=== PATIENT | female | born 1985 | race African-American/Black ===

== ENCOUNTER 2020-01-16 11:03 | Inpatient (IN) | payer BC ==
--- NOTE | 2020-01-16 12:04 | PDOC ---
History of Present Illness - General Chief Complaint: Chest Pain Stated Complaint: Palpitations Time Seen by Provider: 01/16/20 11:48 History Source: Patient Past History - Medical History Allergies/Adverse Reactions: Allergies Allergy/AdvReac Type Severity Reaction Status Date / Time ibuprofen Allergy Verified 01/16/20 11:10 COPD: No Diabetes: Yes Thyroid Disease: Yes (hypo) Other medical history: Endometriosis - Reproductive History Is Patient Now?: No - Psycho-Social/Smoking History Smoking History: Never smoked Have you smoked in the past 12 months: No - Substance Abuse Hx (Audit-C & DAST Scrn) How often the patient has a drink containing alcohol: Never Score: In Men: 4 or > Positive; In Women: 3 or > Positive: 0 Screen Result (Pos requires Nsg. Audit-10AR): Negative In the last yr the pt used illegal drug/Rx for NonMed reason: No Score: Yes response is considered Positive: 0 Screen Result (Positive result requires Nsg. DAST-10): Negative *Physical Exam - Vital Signs Last Vital Signs Temp Pulse Resp BP Pulse Ox 98.3 F 129 H 20 125/87 100 01/16/20 11:10 01/16/20 11:10 01/16/20 11:10 01/16/20 11:10 01/16/20 11:10
--- OUTSIDE RECORDS SUMMARY | 2020-01-16 12:18 | XMS ---
:1985 Author Organization [facility] Support Name Relationship Address Phone [facility] DDSO Unavailable [address] [place] [address] ALLI SHAH MOTHER [address] [phone] [place] [address] Re-disclosure Warning The records that you are about to access may contain information from federally- assisted alcohol or drug abuse programs. If such information is present, then the following federally mandated warning applies: This information has been disclosed to you from records protected by federal confidentiality rules (42 CFR part 2). The federal rules prohibit you from making any further disclosure of this information unless further disclosure is expressly permitted by the written consent of the person to whom it pertains or as otherwise permitted by 42 CFR part 2. A general authorization for the release of medical or other information is NOT sufficient for this purpose. The Federal rules restrict any use of the information to criminally investigate or prosecute any alcohol or drug abuse patient.The records that you are about to access may contain highly sensitive health information, the redisclosure of which is protected by Article 27-F of the [facility] Public Health law. If you continue you may haveaccess to information: Regarding HIV / AIDS; Provided by facilities licensed or operated by the [facility] Office of Mental Health; or Provided by the [facility] Office for People With Developmental Disabilities. If such information is present, then the following [facility] mandated warning applies: This information has been disclosed to you from confidential records which are protected by state law. State law prohibits you from making any further disclosure of this information without the specific written consent of the person to whom it pertains, or as otherwise permitted by law. Any unauthorized further disclosure in violation of state law may result in a fine or fdc sentence or both. A general authorization for the release of medical or other information is NOT sufficient authorization for further disclosure. Insurance Providers Payer name Policy type / Policy ID Covered Covered constitution party's Policy Plan Coverage type constitution party ID relationship to Hensley Information hensley BC PPO [id number] SP [id number]
[2020-01-16 12:37] LABS: BASO % 0.4 % (0-2.0); HEMATOCRIT 41.4 % (32.4-45.2); HEMOGLOBIN 13.2 GM/dL (10.7-15.3); LYMPH % 24.8 % (8-40); MCH 26.2 pg (25.7-33.7); MCHC 31.9 g/dl (32.0-36.0); MEAN PLT VOLUME 8.3 fl (7.5-11.1); MONO % 6.2 % (3.8-10.2); NEUT % 68.6 % (42.8-82.8); PLATELET COUNT 404 K/MM3 (134-434); RBC 5.05 M/mm3 (3.60-5.2); WHITE BLOOD COUNT 4.5 K/mm3 (4.0-10.0)
[2020-01-16 12:43] LABS: EPI CELLS 9 /uL (0-25.1); HYALINE CASTS 1 /uL (0-3.1); URINE APPEARANCE CLEAR; URINE BACTERIA 54 /uL (0-1359); URINE BILIRUBIN NEGATIVE (NEGATIVE); URINE COLOR YELLOW; URINE GLUCOSE (UA) 3+ (NEGATIVE); URINE KETONE 4+ (NEGATIVE); URINE LEUK ESTERASE NEGATIVE (NEGATIVE); URINE NITRITE NEGATIVE (NEGATIVE); URINE PROTEIN 1+ (NEGATIVE); URINE RBC 7 /uL (0-23.9); URINE UROBILINOGEN 0.2 mg/dL (0.2-1.0); URINE WBC 8 /uL (0-25.8)
[2020-01-16 12:46] LABS: INR 1.03 (0.83-1.09); PROTHROMBIN TIME (PATIENT) 12.6 SEC (9.7-13.0)
[2020-01-16 12:49] LABS: ACTIVATED PTT 25.6 SECONDS (25.2-36.5)
[2020-01-16 13:04] LABS: LDH 122 U/L (84-246)
[2020-01-16 13:08] LABS: ALBUMIN 4.1 g/dl (3.4-5.0); ALK PHOS 61 U/L (45-117); ANION GAP 18 MMOL/L (8-16); BILIRUBIN,TOTAL 0.4 mg/dL (0.2-1); BLOOD UREA NITROGEN 8.8 mg/dL (7-18); CALCIUM 9.5 mg/dL (8.5-10.1); CHLORIDE 106 mmol/L (98-107); CO2 10 mmol/L (21-32); CREATININE 0.9 mg/dL (0.55-1.3); GLUCOSE,RANDOM 166 mg/dL (74-106); MAGNESIUM 2.1 mg/dL (1.8-2.4); N-TERMINAL BNP < 5.0 pg/ml (5-125); POTASSIUM 4.2 mmol/L (3.5-5.1); SGOT/AST 8 U/L (15-37); SGPT/ALT 13 U/L (13-61); SODIUM 134 mmol/L (136-145); TOT PROT 8.5 g/dl (6.4-8.2)
--- NOTE | 2020-01-16 13:22 | PDOC ---
Documentation entered by Nicky Escobar SCRIBE, acting as scribe for Romeo Max MD. Romeo Max MD: This documentation has been prepared by the scribeShawn Ana, SCRIBE, under my direction and personally reviewed by me in its entirety. I confirm that the documentation accurately reflects all work, treatment, procedures, and medical decision making performed by me. History of Present Illness - General Chief Complaint: Chest Pain Stated Complaint: Palpitations Time Seen by Provider: 01/16/20 11:48 History Source: Patient Exam Limitations: No Limitations - History of Present Illness Initial Comments: 01/16/20 11:59 Patient is a 34 year old female with a significant past medical history of IDDM2 and adenomyosis c/b heavy periods on exogenous hormones who presents to the ED with chest pain and palpitations x2 days. The pt reports sternal, pleuritic CP a/w SOB on exertion. Reports exercise tolerance reduced to about 1/2 block. These symptoms began while she was walking two days ago. She also reports palpitations and feeling like her heart is racing. She denies hx similar sxs. Denies diaphoresis, dizziness, focal weakness/numbness, fever, chills, cough, headache, N/V/D. Patient also reports suprapubic cramping 2/2 to her period which she has had for 3 weeks. She states this is typical for her due to her adenomyosis and the her [employer] increased her dose of hormones 2 days ago whcih has slowed down the bleeding significantly. States there is no chance that she could be . Denies hx COVID. She denies personal or family hx clots. Denies recent travel or immobility. Allergies: ibuprofen Past History - Medical History Allergies/Adverse Reactions: Allergies Allergy/AdvReac Type Severity Reaction Status Date / Time ibuprofen Allergy Verified 01/16/20 11:10 COPD: No Diabetes: Yes Thyroid Disease: Yes (hypo) Other medical history: Endometriosis - Reproductive History Is Patient Now?: No - Psycho-Social/Smoking History Smoking History: Never smoked Have you smoked in the past 12 months: No - Substance Abuse Hx (Audit-C & DAST Scrn) How often the patient has a drink containing alcohol: Never Score: In Men: 4 or > Positive; In Women: 3 or > Positive: 0 Screen Result (Pos requires Nsg. Audit-10AR): Negative In the last yr the pt used illegal drug/Rx for NonMed reason: No Score: Yes response is considered Positive: 0 Screen Result (Positive result requires Nsg. DAST-10): Negative Review of Systems - Review of Systems Able to Perform ROS?: Yes Comments:: 01/16/20 12:08 GENERAL/CONSTITUTIONAL: No fever or chills. No weakness. HEAD, EYES, EARS, NOSE AND THROAT: No change in vision. No ear pain or discharge. No sore throat. CARDIOVASCULAR: +Chest pain. +Palpitations. +SOB. No loss of consciousness RESPIRATORY: No cough, wheezing, or hemoptysis. GASTROINTESTINAL: No nausea, vomiting, diarrhea or constipation. GENITOURINARY: No dysuria, frequency, or change in urination. MUSCULOSKELETAL: +Lower abdominal cramping. No neck or back pain. SKIN: No rash NEUROLOGIC: No vertigo, no change in strength/sensation. ENDOCRINE: No increased thirst. No abnormal weight change. HEMATOLOGIC/LYMPHATIC: No anemia, easy bleeding, or history of blood clots. ALLERGIC/IMMUNOLOGIC: No hives or skin allergy. *Physical Exam - Vital Signs Last Vital Signs Temp Pulse Resp BP Pulse Ox 98.3 F 129 H 20 125/87 100 01/16/20 11:10 01/16/20 11:10 01/16/20 11:10 01/16/20 11:10 01/16/20 11:10 - Physical Exam 01/16/20 13:54 GENERAL: Awake, alert, and fully oriented, in no acute distress EYES: PERRLA, EOMI, sclera anicteric, conjunctiva clear ENT: Oropharynx clear without exudates. Moist mucosa NECK: Normal ROM, supple, no lymphadenopathy, JVD, or masses LUNGS: Breath sounds equal, clear to auscultation bilaterally. No wheezes, and no crackles HEART: Tachycardic but regular, rate 128 at rest, normal S1 and S2, no murmurs, rubs or gallops ABDOMEN: Soft, nontender, normoactive bowel sounds. No guarding, no rebound. No masses EXTREMITIES: Normal range of motion, no edema. No clubbing or cyanosis. No cords, erythema, or tenderness NEUROLOGICAL: Normal speech, cranial nerves intact, equal strength and sensation b/l SKIN: Warm, Dry, normal turgor, no rashes or lesions noted. Heart Score/ECG Review - History History: Moderately suspicious - Electrocardiogram EKG: Non specific repolarization disturbance - Age Age: </= 45 - Risk Factors Risk Factors Heart Score: Yes Hx Diabetes, Yes Positive family hx of cardiac disease Based on the list above the patient has:: 1-2 risk factors - Troponin Troponin: </= normal limit - Score Heart Score - Total: 3 #1 ECG reviewed & interpreted by me at: 11:10 Twelve-lead EKG was performed and reviewed by me. Sinus tachycardia, rate 115. Normal axis. Normal intervals. +S1Q3T3,+TWI II, III, AVF, no JAMES #2 ECG reviewed & interpreted by me at: 12:05 Twelve-lead EKG was performed and reviewed by me. Sinus tachycardia, rate 103. Normal axis. +S1Q3T3,+TWI II, III, AVF, no JAMES, unchanged from EKG 1hr ago ED Treatment Course - LABORATORY CBC & Chemistry Diagram: 01/16/20 12:01 01/16/20 12:01 Medical Decision Making - Critical Care Time Total Critical Care Time (minutes): 45 Critical Care Statement: The care of this patient involved high complexity decision making to prevent further life threatening deterioration of the patient's condition and/or to evaluate & treat vital organ system(s) failure or risk of failure. - Medical Decision Making 01/16/20 12:03 34-year-old female with a history of insulin-dependent diabetes and adenomyosis presents the emergency department with pleuritic chest pain on exertion as well as shortness of breath for 2 days. Vitals remarkable for heart rate of 128 at rest. Remaining vitals within normal limits. Differential includes pulmonary embolism in light of clinical presentation, EKG findings, and exogenous hormone use versus anemia in the setting of heavy periods versus ACS versus pneumonia versus post COVID pleurisy or dysautonomic syndrome Plan: -labs -tele -CTA -COVID swab + abx -anticipate admission 01/16/20 14:08 CTA neg for PE HR remains at 115, pt does not appear hypovolemic Labs normal, pt not anemic Rpt EKG with persistent inf TWI, Q waves COVID abx+, swab pending. Possible ACS vs post covid pleurisy and dysautonomic syndrome? Plan to admit for tele obs, further cardiac w/u Awaiting call back from hospitalists Discharge - Discharge Information Problems reviewed: Yes Clinical Impression/Diagnosis: Chest pain, SOB (shortness of breath), Palpitations, Tachycardia, Abnormal EKG, Insulin dependent diabetes mellitus, Has immunity to COVID-19 virus - Follow up/Referral - Patient Discharge Instructions - Post Discharge Activity
--- NOTE | 2020-01-16 13:22 | PDOC ---
History of Present Illness - General Chief Complaint: Chest Pain Stated Complaint: Palpitations Time Seen by Provider: 01/16/20 11:48 Past History - Medical History Allergies/Adverse Reactions: Allergies Allergy/AdvReac Type Severity Reaction Status Date / Time ibuprofen Allergy Verified 01/16/20 11:10 COPD: No Diabetes: Yes Thyroid Disease: Yes (hypo) Other medical history: Endometriosis - Reproductive History Is Patient Now?: No - Psycho-Social/Smoking History Smoking History: Never smoked Have you smoked in the past 12 months: No - Substance Abuse Hx (Audit-C & DAST Scrn) How often the patient has a drink containing alcohol: Never Score: In Men: 4 or > Positive; In Women: 3 or > Positive: 0 Screen Result (Pos requires Nsg. Audit-10AR): Negative In the last yr the pt used illegal drug/Rx for NonMed reason: No Score: Yes response is considered Positive: 0 Screen Result (Positive result requires Nsg. DAST-10): Negative *Physical Exam - Vital Signs Last Vital Signs Temp Pulse Resp BP Pulse Ox 98.3 F 129 H 20 125/87 100 01/16/20 11:10 01/16/20 11:10 01/16/20 11:10 01/16/20 11:10 01/16/20 11:10 ED Treatment Course - LABORATORY CBC & Chemistry Diagram: 01/16/20 12:01 01/16/20 12:01 - ADDITIONAL ORDERS Additional order review: Laboratory Results 01/16/20 01/16/20 01/16/20 12:01 12:01 12:01 PT with INR 12.60 INR 1.03 PTT (Actin FS) 25.6 Sodium Potassium Chloride Carbon Dioxide Anion Gap BUN Creatinine Est GFR (CKD-EPI)AfAm Est GFR (CKD-EPI)NonAf Random Glucose Calcium Magnesium Ferritin Total Bilirubin AST ALT Alkaline Phosphatase LD Total Troponin I C-Reactive Protein B-Natriuretic Peptide Total Protein Albumin TSH Serum , Qual Urine Color Urine Appearance Urine pH Ur Specific [place] Urine Protein Urine Glucose (UA) Urine Ketones Urine Blood Urine Nitrite Urine Bilirubin Urine Urobilinogen Ur Leukocyte Esterase Urine WBC (Auto) Urine RBC (Auto) Urine Casts (Auto) U Epithel Cells (Auto) Urine Bacteria (Auto) Urine HCG, Qual Negative 01/16/20 01/16/20 12:01 12:01 PT with INR INR PTT (Actin FS) Sodium 134 L Potassium 4.2 Chloride 106 Carbon Dioxide 10 L Anion Gap 18 H BUN 8.8 Creatinine 0.9 Est GFR (CKD-EPI)AfAm 96.01 Est GFR (CKD-EPI)NonAf 82.84 Random Glucose 166 H Calcium 9.5 Magnesium 2.1 Ferritin 11.5 Total Bilirubin 0.4 AST 8 L ALT 13 Alkaline Phosphatase 61 LD Total 122 Troponin I < 0.02 C-Reactive Protein 0.7 H B-Natriuretic Peptide < 5.0 L Total Protein 8.5 H Albumin 4.1 TSH 0.80 Serum , Qual Urine Color Yellow Urine Appearance Clear Urine pH 5.0 Ur Specific [place] 1.034 Urine Protein 1+ H Urine Glucose (UA) 3+ H Urine Ketones 4+ H Urine Blood Trace Urine Nitrite Negative Urine Bilirubin Negative Urine Urobilinogen 0.2 Ur Leukocyte Esterase Negative Urine WBC (Auto) 8 Urine RBC (Auto) 7 Urine Casts (Auto) 1 U Epithel Cells (Auto) 9 Urine Bacteria (Auto) 54 Urine HCG, Qual 01/16/20 12:01 RBC 5.05 MCV 82.0 MCHC 31.9 L RDW 14.0 MPV 8.3 Neutrophils % 68.6 Lymphocytes % 24.8 Monocytes % 6.2 Eosinophils % 0.0 Basophils % 0.4
--- NOTE | 2020-01-16 13:44 | EKG ---
Test Reason : Blood Pressure : / mmHG Vent. Rate : 103 BPM Atrial Rate : 103 BPM P-R Int : 142 ms QRS Dur : 070 ms QT Int : 322 ms P-R-T Axes : 077 -09 017 degrees QTc Int : 421 ms SINUS TACHYCARDIA POSSIBLE LEFT ATRIAL ENLARGEMENT CANNOT RULE OUT ANTEROSEPTAL INFARCT , AGE UNDETERMINED NONSPECIFIC ST ABNORMALITY ABNORMAL ECG Confirmed by BG PAL MD ([id number]) on 01/16/2020 1:44:17 PM Referred By: Confirmed By:BG PAL MD
[2020-01-16] MEDS ORDERED: ACETAMINOPHEN 1000 MG/100 ML VIAL (NON FORMULARY) IVPB ONE (14:19)
[2020-01-16] MEDS ORDERED: SODIUM CHLORIDE 1,000 ML IV STA ×2 (14:24→15:02)
[2020-01-16] MEDS ORDERED: ACETAMINOPHEN INJECTION 100 ML IVPB ONE (14:26)
[2020-01-16 15:11] LABS: VENOUS BASE EXCESS -18.3 mmol/L (-2-2); VENOUS O2 SATURATION 26.7 % (70-80); VENOUS PCO2 31.4 mmHg (38-52)
[2020-01-16 15:13] LABS: VENOUS PH 7.116 (7.310-7.410)
[2020-01-16] MEDS ORDERED: INSULIN REGULAR HUMAN 100 UNITS/ML *VIAL* (FOR IVP) IVPUSH ONE (15:24)
[2020-01-16] MEDS ORDERED: DEXTROSE 10%-WATER - 1,000 ML IV SCH ×2 (15:30→15:45)
--- OUTSIDE RECORDS SUMMARY | 2020-01-16 15:32 | XMS ---
:1985 Author Organization [facility] Support Name Relationship Address Phone [facility] DDSO Unavailable [address] [place] [address] ALLI SHAH MOTHER [address] [phone] [place] [address] Re-disclosure Warning The records that you are [...] protected by Article 27-F of the [facility] Public Health law. If you continue you may haveaccess to information: Regarding HIV / AIDS; Provided by facilities licensed or operated by the [facility] Office of Mental Health; or Provided by the [facility] Office for People With Developmental Disabilities. If such information is present, then the following [facility] mandated warning applies: This information has [...] law may result in a fine or shelter sentence or both. A general authorization for the release of medical or other information is NOT sufficient authorization for further disclosure. Insurance Providers Payer name Policy type / Policy ID Covered Covered libertarian's Policy Plan Coverage type libertarian ID relationship to [employer] Information hensley BC PPO [id number] SP [id number]
[2020-01-16] MEDS ORDERED: KCL 10 MEQ IVPB 10 MEQ/100 ML INFUS.BAG IVPB ONE (15:42)
[2020-01-16 15:45] LABS: CHOLESTEROL 408 mg/dL (50-200); HDL CHOLESTEROL 34 mg/dL (40-60); TRIGLYCERIDES 149 mg/dL (0-150)
[2020-01-16] MEDS ORDERED: INSULIN REGULAR 100 UNITS in SODIUM CHLORIDE 99 ML IVPB SCH ×2 (15:45→17:47)
[2020-01-16 15:50] LABS: LDL CHOLESTEROL (ONLY SJRH) 308 mg/dL (5-100)
[2020-01-16] MEDS: KCL 10 MEQ IVPB 10 MEQ/100 ML INFUS.BAG IVPB SCH ×3 (15:55→16:50)
[2020-01-16 16:28] LABS: LIPASE 47 U/L (73-393)
[2020-01-16] MEDS ORDERED: MORPHINE SULFATE 2 MG/ML VIAL IVPUSH ONE (17:19)
[2020-01-16] MEDS ORDERED: morphine CARPU-JECT 2 MG/1 ML DISP.SYRIN IVPUSH ONE (17:34)
--- NOTE | 2020-01-16 17:47 | HP ---
CHIEF COMPLAINT: palpitations and sob PCP: HISTORY OF PRESENT ILLNESS: 34 yo F, pmh of IDDM2 and adenomyosis c/b heavy periods on exogenous hormones who presents w/ palpitations and shortness of breath of a few hour duration that has worsened since onset and is accompanied by weakness. Pt reports recent inabi lity to tolerate exercise and activity, during which she feels her heart racing. She denies using any recent substances or changes in her medications. She reports no previous hx of similar symptoms. She was found to be COVID abx positive in the ED but reports no prior knowledge or exposure to COVID. Also reports suprapubic cramping 2/2 to her period and adenomyosis, for which her ADJUNCT INSTRUCTOR increased her dose of hormones 2 days ago which has slowed down the bleeding significantly. In the ED she was found to be in ketoacidosis likely 2/2 to diabetes w/ an elevated anion gap, acidosis on VBG, betahydroxybutrate in serum, w/ mild hyperglycemia of 160s. Denies diaphoresis, dizziness, focal weakness/numbness, fever, chills, cough, headache, N/V/D. Denies hx COVID. She denies personal or family hx clots. Denies recent travel or immobility. ER course was notable for: (1) High anion gap- 18 (2) CT chest negative for PE (3) Recent Travel: none PAST MEDICAL HISTORY: IDDM2 and adenomyosis PAST SURGICAL HISTORY: none Social History: Smoking: marijuana Alcohol: Drugs: Allergies ibuprofen Allergy (Verified 01/16/20 11:10) Palpitations HOME MEDICATIONS: Home Medications Medication Instructions Recorded Dapagliflozin Propanediol [Farxiga] 10 mg PO DAILY 01/16/20 Dulaglutide [Trulicity] 1.5 mg SQ DAILY 01/16/20 Insulin Glargine,Hum.rec.anlog 15 unit SQ DAILY 01/16/20 [Lantus] Norethindrone 0.35 mg PO DAILY 01/16/20 PHYSICAL EXAMINATION Vital Signs - 24 hr 01/16/20 01/16/20 01/16/20 11:10 14:24 17:20 Temperature 98.3 F 98.8 F 98.0 F Pulse Rate 129 H Pulse Rate [ 109 H 97 H Apical] Respiratory 20 19 23 H Rate Blood Pressure 125/87 Blood Pressure 131/95 117/70 [Right Arm] O2 Sat by Pulse 100 100 100 Oximetry (%) GENERAL: Awake, alert, and fully oriented, in no acute distress. EYES: Pupils equal, No lid lag. EARS, NOSE, THROAT: dry mucous membranes. NECK: Normal range of motion, supple LUNGS: Breath sounds equal, clear to auscultation bilaterally. No wheezes, and no crackles. HEART: Regular rate and rhythm, normal S1 and S2 ABDOMEN: Soft, nontender, not distended, normoactive bowel sounds, no guarding, no rebound, no masses. No hepatomegaly or splenomegaly. Mild suprapubic tenderness UPPER EXTREMITIES: 2+ pulses, warm, well-perfused. No peripheral edema. LOWER EXTREMITIES: 2+ pulses, warm, well-perfused. No peripheral edema. NEUROLOGICAL: Normal speech. Normal gait. SKIN: Warm, dry, normal turgor, Laboratory Results - last 24 hr 01/16/20 01/16/20 01/16/20 12:01 12:01 12:01 WBC RBC Hgb Hct MCV MCH MCHC RDW Plt Count MPV Absolute Neuts (auto) Neutrophils % Lymphocytes % Monocytes % Eosinophils % Basophils % Nucleated RBC % PT with INR INR PTT (Actin FS) VBG pH POC VBG pCO2 POC VBG pO2 VBG HCO3 VBG O2 Sat (Stephany) VBG Base Excess Sodium 134 L Potassium 4.2 Chloride 106 Carbon Dioxide 10 L Anion Gap 18 H BUN 8.8 Creatinine 0.9 Est GFR (CKD-EPI)AfAm 96.01 Est GFR (CKD-EPI)NonAf 82.84 POC Glucometer Random Glucose 166 H Hemoglobin A1c % Lactic Acid Calcium 9.5 Magnesium 2.1 Ferritin 11.5 Total Bilirubin 0.4 AST 8 L ALT 13 Alkaline Phosphatase 61 LD Total 122 Troponin I < 0.02 C-Reactive Protein 0.7 H B-Natriuretic Peptide < 5.0 L Total Protein 8.5 H Albumin 4.1 Triglycerides Cholesterol Total LDL Cholesterol HDL Cholesterol Lipase Beta-Hydroxybutyrate > 46.0 H TSH 0.80 Free T4 Serum , Qual Urine Color Yellow Urine Appearance Clear Urine pH 5.0 Ur Specific Valier 1.034 Urine Protein 1+ H Urine Glucose (UA) 3+ H Urine Ketones 4+ H Urine Blood Trace Urine Nitrite Negative Urine Bilirubin Negative Urine Urobilinogen 0.2 Ur Leukocyte Esterase Negative Urine WBC (Auto) 8 Urine RBC (Auto) 7 Urine Casts (Auto) 1 U Epithel Cells (Auto) 9 Urine Bacteria (Auto) 54 Urine HCG, Qual SARS-CoV-2 Ab Interp Reactive 01/16/20 01/16/20 01/16/20 12:01 12:01 12:01 WBC 4.5 RBC 5.05 Hgb 13.2 Hct 41.4 MCV 82.0 MCH 26.2 MCHC 31.9 L RDW 14.0 Plt Count 404 MPV 8.3 Absolute Neuts (auto) 3.1 Neutrophils % 68.6 Lymphocytes % 24.8 Monocytes % 6.2 Eosinophils % 0.0 Basophils % 0.4 Nucleated RBC % 0 PT with INR 12.60 INR 1.03 PTT (Actin FS) 25.6 VBG pH POC VBG pCO2 POC VBG pO2 VBG HCO3 VBG O2 Sat (Stephany) VBG Base Excess Sodium Potassium Chloride Carbon Dioxide Anion Gap BUN Creatinine Est GFR (CKD-EPI)AfAm Est GFR (CKD-EPI)NonAf POC Glucometer Random Glucose Hemoglobin A1c % Lactic Acid Calcium Magnesium Ferritin Total Bilirubin AST ALT Alkaline Phosphatase LD Total Troponin I C-Reactive Protein B-Natriuretic Peptide Total Protein Albumin Triglycerides Cholesterol Total LDL Cholesterol HDL Cholesterol Lipase Beta-Hydroxybutyrate TSH Free T4 Serum , Qual Negative Urine Color Urine Appearance Urine pH Ur Specific Valier Urine Protein Urine Glucose (UA) Urine Ketones Urine Blood Urine Nitrite Urine Bilirubin Urine Urobilinogen Ur Leukocyte Esterase Urine WBC (Auto) Urine RBC (Auto) Urine Casts (Auto) U Epithel Cells (Auto) Urine Bacteria (Auto) Urine HCG, Qual SARS-CoV-2 Ab Interp 01/16/20 01/16/20 01/16/20 12:01 14:43 14:45 WBC RBC Hgb Hct MCV MCH MCHC RDW Plt Count MPV Absolute Neuts (auto) Neutrophils % Lymphocytes % Monocytes % Eosinophils % Basophils % Nucleated RBC % PT with INR INR PTT (Actin FS) VBG pH POC VBG pCO2 POC VBG pO2 VBG HCO3 VBG O2 Sat (Stephany) VBG Base Excess Sodium Potassium Chloride Carbon Dioxide Anion Gap BUN Creatinine Est GFR (CKD-EPI)AfAm Est GFR (CKD-EPI)NonAf POC Glucometer 136 Random Glucose Hemoglobin A1c % 8.8 H Lactic Acid Calcium Magnesium Ferritin Total Bilirubin AST ALT Alkaline Phosphatase LD Total Troponin I C-Reactive Protein B-Natriuretic Peptide Total Protein Albumin Triglycerides Cholesterol Total LDL Cholesterol HDL Cholesterol Lipase Beta-Hydroxybutyrate TSH Free T4 Serum , Qual Urine Color Urine Appearance Urine pH Ur Specific Valier Urine Protein Urine Glucose (UA) Urine Ketones Urine Blood Urine Nitrite Urine Bilirubin Urine Urobilinogen Ur Leukocyte Esterase Urine WBC (Auto) Urine RBC (Auto) Urine Casts (Auto) U Epithel Cells (Auto) Urine Bacteria (Auto) Urine HCG, Qual Negative SARS-CoV-2 Ab Interp 01/16/20 01/16/20 01/16/20 14:45 14:45 14:45 WBC RBC Hgb Hct MCV MCH MCHC RDW Plt Count MPV Absolute Neuts (auto) Neutrophils % Lymphocytes % Monocytes % Eosinophils % Basophils % Nucleated RBC % PT with INR INR PTT (Actin FS) VBG pH 7.116 L* POC VBG pCO2 31.4 L POC VBG pO2 23.1 L VBG HCO3 9.9 L VBG O2 Sat (Stephany) 26.7 L VBG Base Excess -18.3 L Sodium Potassium Chloride Carbon Dioxide Anion Gap BUN Creatinine Est GFR (CKD-EPI)AfAm Est GFR (CKD-EPI)NonAf POC Glucometer Random Glucose Hemoglobin A1c % Lactic Acid Calcium Magnesium Ferritin Total Bilirubin AST ALT Alkaline Phosphatase LD Total Troponin I < 0.02 C-Reactive Protein B-Natriuretic Peptide Total Protein Albumin Triglycerides 149 Cholesterol 408 H Total LDL Cholesterol 308 H HDL Cholesterol 34 L Lipase 47 L Beta-Hydroxybutyrate TSH Free T4 1.21 Serum , Qual Urine Color Urine Appearance Urine pH Ur Specific Valier Urine Protein Urine Glucose (UA) Urine Ketones Urine Blood Urine Nitrite Urine Bilirubin Urine Urobilinogen Ur Leukocyte Esterase Urine WBC (Auto) Urine RBC (Auto) Urine Casts (Auto) U Epithel Cells (Auto) Urine Bacteria (Auto) Urine HCG, Qual SARS-CoV-2 Ab Interp 01/16/20 01/16/20 14:45 16:46 WBC RBC Hgb Hct MCV MCH MCHC RDW Plt Count MPV Absolute Neuts (auto) Neutrophils % Lymphocytes % Monocytes % Eosinophils % Basophils % Nucleated RBC % PT with INR INR PTT (Actin FS) VBG pH POC VBG pCO2 POC VBG pO2 VBG HCO3 VBG O2 Sat (Stephany) VBG Base Excess Sodium Potassium Chloride Carbon Dioxide Anion Gap BUN Creatinine Est GFR (CKD-EPI)AfAm Est GFR (CKD-EPI)NonAf POC Glucometer 124 Random Glucose Hemoglobin A1c % Lactic Acid 1.3 Calcium Magnesium Ferritin Total Bilirubin AST ALT Alkaline Phosphatase LD Total Troponin I C-Reactive Protein B-Natriuretic Peptide Total Protein Albumin Triglycerides Cholesterol Total LDL Cholesterol HDL Cholesterol Lipase Beta-Hydroxybutyrate TSH Free T4 Serum , Qual Urine Color Urine Appearance Urine pH Ur Specific Valier Urine Protein Urine Glucose (UA) Urine Ketones Urine Blood Urine Nitrite Urine Bilirubin Urine Urobilinogen Ur Leukocyte Esterase Urine WBC (Auto) Urine RBC (Auto) Urine Casts (Auto) U Epithel Cells (Auto) Urine Bacteria (Auto) Urine HCG, Qual SARS-CoV-2 Ab Interp ASSESSMENT/PLAN: 34 yo F, pmh of IDDM2 and adenomyosis c/b heavy periods on exogenous hormones who presents w/ palpitations and shortness of breath of a few hour duration that has worsened since onset and is accompanied by weakness is admitted for E uglycemic DKA likely 2/2 to Dapagliflozin use vs DKA #Neuro AOx3 stable #Pulm stable #CV tachycardic palpitations EKG: TWI in III, aVF, V1, Q waves noted Trops negative, r/p trops pending #GI stable protonix #Endo pt in euglycemic DKA likely 2/2 to Daptoglifozin use, known cause of EuDKA Anion gap 18, HCO3 10, pH 7.11, betahydroxy seen in serum Will start on Insulin drip at .1 and titrate pt Gluc at 160> 180. Will be cautious with insulin as pt is <200 and risk if hypoglycemia cont 1/2 ns at 200 BMP Q2H BGM Q1H VBG Q2H Hold all DM meds Eval other causes of high Anion Gap acidosis Delta/delta at .4, which shows a mixed acid base disturbances will order salicylates, ethylene glycol #ID stable #Renal Ketones in urine 4+ Gluc + Will consult Nephro #Press Helper mild suprapubic pain 2/2 to adenomyosis UCx #DVT ppx Hep sc #GI ppx protonix Dispo cont to monitor, insulin drip, monitor for hypoglycemia, hold all meds ATTENDING PHYSICIAN STATEMENT I saw and evaluated the patient. I reviewed the resident's note and discussed the case with the resident. I agree with the resident's findings and plan as documented. SUBJECTIVE: OBJECTIVE: ASSESSMENT AND PLAN:
[2020-01-16 17:50] LABS: OPIATES, URI NEGATIVE ng/ml (CUTOFF=300)
[2020-01-16 17:52] LABS: URINE BARBITURATES NEGATIVE ng/ml (CUTOFF=200)
[2020-01-16 17:58] LABS: COCAINE, UR NEGATIVE ng/ml (CUTOFF=300); URINE BENZODIAZEPINES NEGATIVE ng/ml (CUTOFF=200)
[2020-01-16 17:59] LABS: PHENCYCLIDINE,URINE NEGATIVE ng/ml (CUTOFF=25)
[2020-01-16 18:00] LABS: METHADONE, UR NEGATIVE ng/ml (CUTOFF=300); URINE AMPHETAMINES NEGATIVE ng/ml (CUTOFF=500)
[2020-01-16] MEDS: POTASSIUM CHLORIDE 10 MEQ in SODIUM CHLORIDE 0.45% 1,000 ML IVPB SCH (18:17)
[2020-01-16] MEDS ORDERED: MORPHINE SULFATE 2 MG/ML VIAL ONE (18:23)
[2020-01-16 18:48] LABS: POTASSIUM 4.6 mmol/L (3.5-5.1)
[2020-01-16 18:49] LABS: CALCIUM 7.9 mg/dL (8.5-10.1)
[2020-01-16 18:50] LABS: BLOOD UREA NITROGEN 6.2 mg/dL (7-18)
[2020-01-16 18:53] LABS: CREATININE 0.7 mg/dL (0.55-1.3)
[2020-01-16] MEDS ORDERED: ACETAMINOPHEN 325 MG TABLET (FP) PO ONE (21:27)
[2020-01-16 21:28] LABS: ARTERIAL BLD GAS O2 SATURATION 53.7 mmHg (95-98); ARTERIAL BLOOD GAS BASE EXCESS -14.6 mmol/L (-2-2); ARTERIAL BLOOD GAS pH 7.208 (7.350-7.450)
[2020-01-16 21:32] LABS: ARTERIAL BLOOD GAS PO2 33.7 mmHg (80-100)
[2020-01-16] MEDS: HEPARIN NA (PORCINE) 5,000 UNITS/ML 1ML VIAL SQ SCH (21:42)
[2020-01-16] MEDS: MUPIROCIN 2% TOPICAL OINTMENT FOR DECOLONIZATION NS SCH (21:45)
[2020-01-16] MEDS ORDERED: CHLORHEXIDINE GLUCONATE 4% CLEANSER FOR DECOLONIZATION TP SCH (22:00)
[2020-01-16 22:17] LABS: CHLORIDE 107 mmol/L (98-107); POTASSIUM 3.8 mmol/L (3.5-5.1)
[2020-01-16 22:19] LABS: BLOOD UREA NITROGEN 5.6 mg/dL (7-18); CALCIUM 8.1 mg/dL (8.5-10.1); CO2 13 mmol/L (21-32); GLUCOSE,RANDOM 159 mg/dL (74-106)
[2020-01-16 22:23] LABS: CREATININE 0.8 mg/dL (0.55-1.3)
[2020-01-16 22:27] LABS: ANION GAP 12 MMOL/L (8-16); SODIUM 133 mmol/L (136-145)
[2020-01-16 23:56] LABS: POTASSIUM 3.5 mmol/L (3.5-5.1)
[2020-01-16 23:58] LABS: BLOOD UREA NITROGEN 5.2 mg/dL (7-18); CALCIUM 8.3 mg/dL (8.5-10.1)
[2020-01-17 00:02] LABS: CREATININE 0.7 mg/dL (0.55-1.3)
[2020-01-17 01:23] LABS: VENOUS O2 SATURATION 42.5 % (70-80); VENOUS PCO2 34.5 mmHg (38-52); VENOUS PH 7.238 (7.310-7.410)
[2020-01-17] MEDS ORDERED: LACTATED RINGERS SOLUTION 1,000 ML/1,000 ML INFUS.BAG IV SCH (02:00)
[2020-01-17 04:30] VITALS: BMI 25.3
[2020-01-17] MEDS: HEPARIN NA (PORCINE) 5,000 UNITS/ML 1ML VIAL SQ SCH ×3 (06:20→21:27)
[2020-01-17] MEDS: INSULIN SLIDING SCALE (NOVOLOG) 1 VIAL SQ SCH ×4 (06:20→21:25)
[2020-01-17] MEDS ORDERED: Insulin (LOG) Aspart 100 UNITS/ML VIAL SQ SCH (07:00)
[2020-01-17 07:20] LABS: BASO % 0.5 % (0-2.0); HEMATOCRIT 31.2 % (32.4-45.2); HEMOGLOBIN 10.7 GM/dL (10.7-15.3); LYMPH % 35.6 % (8-40); MCH 27.5 pg (25.7-33.7); MCHC 34.3 g/dl (32.0-36.0); MEAN CELL VOLUME 80.2 fl (80-96); MEAN PLT VOLUME 7.9 fl (7.5-11.1); MONO % 10.4 % (3.8-10.2); NEUT % 53.5 % (42.8-82.8); PLATELET COUNT 305 K/MM3 (134-434); RBC 3.89 M/mm3 (3.60-5.2); RDW 14.1 % (11.6-15.6); WHITE BLOOD COUNT 4.1 K/mm3 (4.0-10.0)
[2020-01-17 07:25] LABS: INR 0.91 (0.83-1.09); PROTHROMBIN TIME (PATIENT) 11.2 SEC (9.7-13.0)
[2020-01-17 07:31] LABS: POTASSIUM 4.2 mmol/L (3.5-5.1)
[2020-01-17 07:34] LABS: CALCIUM 8.2 mg/dL (8.5-10.1)
[2020-01-17 07:35] LABS: MAGNESIUM 1.9 mg/dL (1.8-2.4)
[2020-01-17 07:37] LABS: CREATININE 0.7 mg/dL (0.55-1.3)
[2020-01-17 07:39] LABS: BILIRUBIN,TOTAL 0.4 mg/dL (0.2-1)
[2020-01-17 07:47] LABS: TOT PROT 6.4 g/dl (6.4-8.2)
[2020-01-17] MEDS: MUPIROCIN 2% TOPICAL OINTMENT FOR DECOLONIZATION NS SCH (09:50)
[2020-01-17] MEDS ORDERED: PANTOPRAZOLE 40 MG TABLET PO SCH (10:00)
--- NOTE | 2020-01-17 10:32 | PN ---
Progress Note (short form) - Note Progress Note: CCM Pt seen and examined in ICU 24Hr: Hco3 to 18 BGL controlled Gap closed ambulating around room Vital Signs Temp 98.4 F 01/17/20 10:00 Pulse 98 H 01/17/20 10:18 Resp 14 01/17/20 10:18 BP 116/81 01/17/20 10:00 Pulse Ox 100 01/17/20 10:00 Intake & Output 01/16/20 01/16/20 01/17/20 11:59 23:59 11:59 Intake Total 1169 375 Balance 1169 375 Weight 72.575 kg 73.482 kg 73.482 kg Intake: IV 1169 375 D10w - 1,000 ml @ 125 mls 1125 /hr IV ASDIR JULIA Rx#: [id number] LACTATED RINGERS SOLUTION 375 1,000 ml In 1,000 ml @ 75 mls/hr IV ASDIR JULIA Rx #:[id number] NOVOLIN R VIAL *For 44 IVPUSH or IV DRIP Only* 100 UNITS In Normal Saline - 99 ml @ 0.01 UNITS/KG/HR 0.726 mls/hr IVPB TITR JULIA Rx#: [id number] Other: Voiding Method Toilet Toilet # Unmeasured Voids Void 2 1 Bowel Movement No No Height 5 ft 7 in 5 ft 7 in Body Mass Index (BMI) 25.0 25.3 Weight Measurement Method Built in [facility] Weight Measurement Method Est/Stated by Patient CBC, BMP 01/17/20 06:40 01/17/20 06:40 Active Medications Chlorhexidine Gluconate (Hibiclens For Decolonization -) 1 applic TP HS JULIA Last Admin: 01/16/20 21:45 Dose: 1 applic Documented by: Heparin Sodium (Porcine) (Heparin -) 5,000 unit SQ TID JULIA Last Admin: 01/17/20 06:20 Dose: 5,000 unit Documented by: Lactated Ringer's (Lactated Ringers Solution) 1,000 ml in 1,000 mls @ 75 mls/hr IV ASDIR JULIA Stop: 01/17/20 15:19 Last Admin: 01/17/20 02:13 Dose: 75 mls/hr Documented by: Insulin Aspart (Novolog Vial Sliding Scale -) 1 vial SQ ACHS [facility]; Protocol Last Admin: 01/17/20 06:20 Dose: 2 units Documented by: Insulin Detemir (Levemir Vial) 15 units SQ HS [facility] Mupirocin (Bactroban Ointment (For Decolonization) -) 1 applic NS BID [facility] Stop: 01/21/20 21:59 Last Admin: 01/17/20 09:50 Dose: 1 applic Documented by: Pantoprazole Sodium (Protonix -) 40 mg PO DAILY [facility] Last Admin: 01/17/20 09:50 Dose: 40 mg Documented by: PE: Gen: non toxic well appearing woman Heent: PERRL, supple Pulm: clear CV: regular, tachy 100 ABD: soft, NT EXT: no edema A/ 34 y/o woman, DKA now resoloved P/ -sliding scale -oob - resume home hormones, not on formulary, will need family to bring in -Sqh for dvt Ok for floor. Fabienne [facility]
--- NOTE | 2020-01-17 18:36 | EKG ---
Test Reason : Blood Pressure : / mmHG Vent. Rate : 084 BPM Atrial Rate : 084 BPM P-R Int : 144 ms QRS Dur : 076 ms QT Int : 364 ms P-R-T Axes : 067 -13 040 degrees QTc Int : 430 ms NORMAL SINUS RHYTHM SEPTAL INFARCT (CITED ON OR BEFORE 16-JAN-2020) ABNORMAL ECG WHEN COMPARED WITH ECG OF 16-JAN-2020 12:06, NO SIGNIFICANT CHANGE WAS FOUND Confirmed by MD ALTHEA, ODETTE ([id number]) on 01/17/2020 6:36:17 PM Referred By: DIMAS GRANT DR Confirmed By:ODETTE OH MD
--- NOTE | 2020-01-17 20:01 | PN ---
Progress Note (short form) - Note Progress Note: Pt. is a 34 yo F, pmh of IDDM2 and adenomyosis c/b heavy periods on exogenous hormones who presents w/ palpitations and shortness of breath of a few hour duration that has worsened since onset and is accompanied by weakness is admitted for Euglycemic DKA. Pt. completed Insulin gtt and 2.5 L IVF in ICU with resolution of anion gap. Pt. endorses marked symptomatic improvement though still with palpitations on ambulation to bathroom. Farxiga has been discontinued and Pt. has had discussion with her Supervisor [employer] who is requesting an Endocrine consult for this patient as she has had a compliacted history in managing her diabetes. Pt. take Lantus and Trulicity at home. Metformin was discontinued early on because it had "no effect on her glucose." PE: A&O x 3 MMM CTAB S1, S2 without murmurs NT, ND, BS+, no calf tendernes, no edema #DM2 complicated by EuDKA D/C-ed Farxiga c/w Lantus and Trulicity consult to Endorinology placed consider starting Pt. on AC Insulin for meal coverage on discharge c/w PO hydration- Pt. endorses drinking 2L of water today Diabetic diet monitor electrolytes #Adenomyosis Pt. has resumed her Norethindrone 10mg BID as per her outpatient physician Hep SQfor DVT Ppx.
--- NOTE | 2020-01-17 20:12 | PN ---
Teaching Attending Note Name of Resident: Dave Arias ATTENDING PHYSICIAN STATEMENT I saw and evaluated the patient. I reviewed the resident's note and discussed the case with the resident. I agree with the resident's findings and plan as documented. SUBJECTIVE: Transfer from ICU, hospital day 2 Patient reports feeling better, still mildly short of breath with ambulation. Tolerating PO. She has updated her cut off machine helper. OBJECTIVE: Last Vital Signs Temp Pulse Resp BP Pulse Ox 98.5 F 100 H 20 110/70 98 01/17/20 16:00 01/17/20 16:00 01/17/20 16:00 01/17/20 16:00 01/17/20 16:00 EXAM Gen: awake, alert, NAD CV: RRR Resp: CTAB, unlabored Abd: Soft, NT, ND. +BS throughout Ext: no edema Laboratory Results - last 24 hr 01/16/20 01/16/20 01/16/20 12:01 20:09 20:40 WBC RBC Hgb Hct MCV MCH MCHC RDW Plt Count MPV Absolute Neuts (auto) Neutrophils % Lymphocytes % Monocytes % Eosinophils % Basophils % Nucleated RBC % PT with INR INR Anticoagulation Therapy No Result Required. Puncture Site No Result Required. Patient Temperature No Result Required. ABG pH 7.208 L ABG pCO2 30.60 L ABG pO2 33.7 L* ABG HCO3 11.9 L ABG O2 Sat (Measured) 53.7 L ABG O2 Content No Result Required. ABG Base Excess -14.6 L Darwin Test No Result Required. VBG pH POC VBG pCO2 POC VBG pO2 VBG HCO3 VBG O2 Sat (Stephany) VBG Base Excess Patient On Oxygen No Result Required. O2 Delivery Device No Result Required. Oxygen Flow Rate No Result Required. Vent Mode No Result Required. Vent Rate No Result Required. Mechanical Rate No Result Required. PEEP No Result Required. Pressure Support Vent No Result Required. Sodium Potassium Chloride Carbon Dioxide Anion Gap BUN Creatinine Est GFR (CKD-EPI)AfAm Est GFR (CKD-EPI)NonAf POC Glucometer 201 Random Glucose Calcium Phosphorus Magnesium Total Bilirubin AST ALT Alkaline Phosphatase Creatine Kinase Troponin I Total Protein Albumin Salicylates COVID-19 (WHITNEY) Not detected 01/16/20 01/16/20 01/16/20 20:40 20:40 20:40 WBC RBC Hgb Hct MCV MCH MCHC RDW Plt Count MPV Absolute Neuts (auto) Neutrophils % Lymphocytes % Monocytes % Eosinophils % Basophils % Nucleated RBC % PT with INR INR Anticoagulation Therapy Puncture Site Patient Temperature ABG pH ABG pCO2 ABG pO2 ABG HCO3 ABG O2 Sat (Measured) ABG O2 Content ABG Base Excess Darwin Test VBG pH POC VBG pCO2 POC VBG pO2 VBG HCO3 VBG O2 Sat (Stephany) VBG Base Excess Patient On Oxygen O2 Delivery Device Oxygen Flow Rate Vent Mode Vent Rate Mechanical Rate PEEP Pressure Support Vent Sodium 133 L Potassium 3.8 Chloride 107 Carbon Dioxide 13 L Anion Gap 12 BUN 5.6 L Creatinine 0.8 Est GFR (CKD-EPI)AfAm 110.70 Est GFR (CKD-EPI)NonAf 95.52 POC Glucometer 163 Random Glucose 159 H Calcium 8.1 L Phosphorus Magnesium Total Bilirubin AST ALT Alkaline Phosphatase Creatine Kinase 49 Troponin I < 0.02 Total Protein Albumin Salicylates 1.9 L COVID- (WHITNEY) 01/16/20 01/16/20 01/16/20 22:04 23:20 23:20 WBC RBC Hgb Hct MCV MCH MCHC RDW Plt Count MPV Absolute Neuts (auto) Neutrophils % Lymphocytes % Monocytes % Eosinophils % Basophils % Nucleated RBC % PT with INR INR Anticoagulation Therapy Puncture Site Patient Temperature ABG pH ABG pCO2 ABG pO2 ABG HCO3 ABG O2 Sat (Measured) ABG O2 Content ABG Base Excess Darwin Test VBG pH 7.238 L POC VBG pCO2 34.5 L POC VBG pO2 27.6 L VBG HCO3 14.4 L VBG O2 Sat (Stephany) 42.5 L VBG Base Excess -12.0 L Patient On Oxygen O2 Delivery Device Oxygen Flow Rate Vent Mode Vent Rate Mechanical Rate PEEP Pressure Support Vent Sodium 133 L Potassium 3.5 Chloride 107 Carbon Dioxide 16 L Anion Gap 10 BUN 5.2 L Creatinine 0.7 Est GFR (CKD-EPI)AfAm 130.10 Est GFR (CKD-EPI)NonAf 112.25 POC Glucometer 181 Random Glucose 183 H Calcium 8.3 L Phosphorus Magnesium Total Bilirubin AST ALT Alkaline Phosphatase Creatine Kinase Troponin I Total Protein Albumin Salicylates COVID-19 (WHITNEY) 01/16/20 01/17/20 01/17/20 23:26 01:37 02:57 WBC RBC Hgb Hct MCV MCH MCHC RDW Plt Count MPV Absolute Neuts (auto) Neutrophils % Lymphocytes % Monocytes % Eosinophils % Basophils % Nucleated RBC % PT with INR INR Anticoagulation Therapy Puncture Site Patient Temperature ABG pH ABG pCO2 ABG pO2 ABG HCO3 ABG O2 Sat (Measured) ABG O2 Content ABG Base Excess Darwin Test VBG pH POC VBG pCO2 POC VBG pO2 VBG HCO3 VBG O2 Sat (Stephany) VBG Base Excess Patient On Oxygen O2 Delivery Device Oxygen Flow Rate Vent Mode Vent Rate Mechanical Rate PEEP Pressure Support Vent Sodium Potassium Chloride Carbon Dioxide Anion Gap BUN Creatinine Est GFR (CKD-EPI)AfAm Est GFR (CKD-EPI)NonAf POC Glucometer 194 214 218 Random Glucose Calcium Phosphorus Magnesium Total Bilirubin AST ALT Alkaline Phosphatase Creatine Kinase Troponin I Total Protein Albumin Salicylates COVID-19 (WHITNEY) 01/17/20 01/17/20 01/17/20 05:47 06:40 06:40 WBC 4.1 RBC 3.89 Hgb 10.7 Hct 31.2 L D MCV 80.2 MCH 27.5 MCHC 34.3 RDW 14.1 Plt Count 305 D MPV 7.9 Absolute Neuts (auto) 2.2 Neutrophils % 53.5 D Lymphocytes % 35.6 D Monocytes % 10.4 H Eosinophils % 0.0 Basophils % 0.5 Nucleated RBC % 0 PT with INR 11.20 INR 0.91 Anticoagulation Therapy Puncture Site Patient Temperature ABG pH ABG pCO2 ABG pO2 ABG HCO3 ABG O2 Sat (Measured) ABG O2 Content ABG Base Excess Darwin Test VBG pH POC VBG pCO2 POC VBG pO2 VBG HCO3 VBG O2 Sat (Stephany) VBG Base Excess Patient On Oxygen O2 Delivery Device Oxygen Flow Rate Vent Mode Vent Rate Mechanical Rate PEEP Pressure Support Vent Sodium Potassium Chloride Carbon Dioxide Anion Gap BUN Creatinine Est GFR (CKD-EPI)AfAm Est GFR (CKD-EPI)NonAf POC Glucometer 155 Random Glucose Calcium Phosphorus Magnesium Total Bilirubin AST ALT Alkaline Phosphatase Creatine Kinase Troponin I Total Protein Albumin Salicylates COVID-19 (WHITNEY) 01/17/20 01/17/20 01/17/20 06:40 11:50 16:02 WBC RBC Hgb Hct MCV MCH MCHC RDW Plt Count MPV Absolute Neuts (auto) Neutrophils % Lymphocytes % Monocytes % Eosinophils % Basophils % Nucleated RBC % PT with INR INR Anticoagulation Therapy Puncture Site Patient Temperature ABG pH ABG pCO2 ABG pO2 ABG HCO3 ABG O2 Sat (Measured) ABG O2 Content ABG Base Excess Darwin Test VBG pH POC VBG pCO2 POC VBG pO2 VBG HCO3 VBG O2 Sat (Stephany) VBG Base Excess Patient On Oxygen O2 Delivery Device Oxygen Flow Rate Vent Mode Vent Rate Mechanical Rate PEEP Pressure Support Vent Sodium 137 Potassium 4.2 Chloride 112 H Carbon Dioxide 18 L Anion Gap 8 BUN 6.0 L Creatinine 0.7 Est GFR (CKD-EPI)AfAm 130.10 Est GFR (CKD-EPI)NonAf 112.25 POC Glucometer 198 304 Random Glucose 158 H Calcium 8.2 L Phosphorus 2.0 L Magnesium 1.9 Total Bilirubin 0.4 AST 8 L ALT 11 L Alkaline Phosphatase 52 Creatine Kinase Troponin I Total Protein 6.4 Albumin 3.0 L Salicylates COVID-19 (WHITNEY) ASSESSMENT AND PLAN: 34yoF with history of T2DM on insulin and adenomyosis who presented on 01/15 with palpitations and shortness of breath admitted with euglycemic DKA in the setting of dapagliflozin use. Anion gap has now closed, patient is tolerating PO. - repeat BMP - replete phos - dapagliflozin discontinued; started on Levemir and ISS
[2020-01-17] MEDS ORDERED: NAPH,MB-DB/K PH,MBDB POWDER PACKET PO ONE (20:18)
[2020-01-17] MEDS ORDERED: INSULIN (NOVOLOG) ASPART 100 UNITS/ML 10ML VIAL ONE (21:04)
[2020-01-17] MEDS: POTASSIUM CHLORIDE 10 MEQ in SODIUM CHLORIDE 0.45% 1,000 ML IVPB SCH (21:33)
[2020-01-17] MEDS ORDERED: INSULIN (LEVEMIR) 100 UNITS/ML UNITS SQ SCH ×2 (22:00)
[2020-01-17] MEDS ORDERED: CHLORHEXIDINE GLUCONATE 4% CLEANSER FOR DECOLONIZATION TP SCH (22:00)
[2020-01-17] MEDS ORDERED: MUPIROCIN 2% TOPICAL OINTMENT FOR DECOLONIZATION NS SCH (22:00)
[2020-01-17 22:26] LABS: POTASSIUM 3.9 mmol/L (3.5-5.1)
[2020-01-17 22:28] LABS: BLOOD UREA NITROGEN 5.2 mg/dL (7-18); CALCIUM 8.6 mg/dL (8.5-10.1)
[2020-01-17 22:31] LABS: CREATININE 0.7 mg/dL (0.55-1.3)
[2020-01-18] MEDS: INSULIN SLIDING SCALE (NOVOLOG) 1 VIAL SQ SCH ×2 (06:05→11:30)
[2020-01-18] MEDS: HEPARIN NA (PORCINE) 5,000 UNITS/ML 1ML VIAL SQ SCH ×2 (06:06→13:21)
[2020-01-18 09:29] LABS: HEMATOCRIT 29.4 % (32.4-45.2); HEMOGLOBIN 10.2 GM/dL (10.7-15.3); MCH 27.5 pg (25.7-33.7); MCHC 34.5 g/dl (32.0-36.0); MEAN CELL VOLUME 79.7 fl (80-96); MEAN PLT VOLUME 8.1 fl (7.5-11.1); PLATELET COUNT 277 K/MM3 (134-434); RBC 3.69 M/mm3 (3.60-5.2); RDW 14.4 % (11.6-15.6); WHITE BLOOD COUNT 2.9 K/mm3 (4.0-10.0)
[2020-01-18 09:40] LABS: POTASSIUM 3.5 mmol/L (3.5-5.1)
[2020-01-18 09:50] LABS: ALBUMIN 2.9 g/dl (3.4-5.0); BLOOD UREA NITROGEN 6.4 mg/dL (7-18); CALCIUM 8.3 mg/dL (8.5-10.1)
[2020-01-18 09:53] LABS: MAGNESIUM 1.9 mg/dL (1.8-2.4)
[2020-01-18 09:55] LABS: BILIRUBIN,TOTAL 0.5 mg/dL (0.2-1)
[2020-01-18 09:56] LABS: CREATININE 0.4 mg/dL (0.55-1.3)
[2020-01-18] MEDS ORDERED: PANTOPRAZOLE 40 MG TABLET PO SCH (10:00)
[2020-01-18 14:27] VITALS: BP 122/74; PULSE 97; TEMP 98.8
--- NOTE | 2020-01-18 14:29 | DS ---
Physical Exam: SUBJECTIVE: Patient seen and examined OBJECTIVE: Vital Signs Period Temp Pulse Resp BP Sys/Telles Pulse Ox Last 24 Hr 98 F-99.3 F 81-100 20-20 106-122/53-74 96-100 PHYSICAL EXAM GENERAL: The patient is awake, alert, and fully oriented, in no acute distress. HEAD: Normal with no signs of trauma. EYES: PERRL, extraocular movements intact, sclera anicteric, conjunctiva clear. ENT: Ears normal, nares patent, oropharynx clear without exudates, moist mucous membranes. NECK: Trachea midline, full range of motion, supple. LUNGS: Breath sounds equal, clear to auscultation bilaterally, no wheezes, no crackles, no accessory muscle use. HEART: Regular rate and rhythm, S1, S2 without murmur, rub or gallop. ABDOMEN: Soft, nontender, nondistended, normoactive bowel sounds, no guarding, no rebound, no hepatosplenomegaly, no masses. EXTREMITIES: 2+ pulses, warm, well-perfused, no edema. NEUROLOGICAL: Cranial nerves II through XII grossly intact. Normal speech, gait not observed. PSYCH: Normal mood, normal affect. SKIN: Warm, dry, normal turgor, no rashes or lesions noted. LABS Laboratory Results - last 24 hr 01/17/20 01/17/20 01/17/20 16:02 21:25 21:28 WBC RBC Hgb Hct MCV MCH MCHC RDW Plt Count MPV Sodium 136 Potassium 3.9 Chloride 105 Carbon Dioxide 24 Anion Gap 8 BUN 5.2 L Creatinine 0.7 Est GFR (CKD-EPI)AfAm 130.10 Est GFR (CKD-EPI)NonAf 112.25 POC Glucometer 304 198 Random Glucose 179 H Calcium 8.6 Phosphorus Magnesium Total Bilirubin AST ALT Alkaline Phosphatase Total Protein Albumin 01/18/20 01/18/20 01/18/20 06:05 07:18 07:18 WBC 2.9 L RBC 3.69 Hgb 10.2 L Hct 29.4 L MCV 79.7 L MCH 27.5 MCHC 34.5 RDW 14.4 Plt Count 277 MPV 8.1 Sodium 139 Potassium 3.5 Chloride 107 Carbon Dioxide 22 Anion Gap 10 BUN 6.4 L Creatinine 0.4 L Est GFR (CKD-EPI)AfAm 156.40 Est GFR (CKD-EPI)NonAf 134.94 POC Glucometer 143 Random Glucose 122 H Calcium 8.3 L Phosphorus 2.0 L Magnesium 1.9 Total Bilirubin 0.5 AST 6 L ALT 10 L Alkaline Phosphatase 43 L Total Protein 6.0 L Albumin 2.9 L 01/18/20 11:26 WBC RBC Hgb Hct MCV MCH MCHC RDW Plt Count MPV Sodium Potassium Chloride Carbon Dioxide Anion Gap BUN Creatinine Est GFR (CKD-EPI)AfAm Est GFR (CKD-EPI)NonAf POC Glucometer 167 Random Glucose Calcium Phosphorus Magnesium Total Bilirubin AST ALT Alkaline Phosphatase Total Protein Albumin HOSPITAL COURSE: Date of Admission:01/16/20 Date of Discharge: 01/18/20 Minutes to complete discharge: 36 Discharge Summary Problems reviewed: Yes Reason For Visit: SHORTNESS OF BREATH ABN ELECTROCARDIOGRAPHY Current Active Problems Abnormal EKG (Acute) Chest pain (Acute) Has immunity to COVID-19 virus (Acute) Insulin dependent diabetes mellitus (Acute) Palpitations (Acute) SOB (shortness of breath) (Acute) Tachycardia (Acute) Condition: Improved - Instructions Diet, Activity, Other Instructions: You came to the hospital because you were having shortness of breath, palpitations and weakness, and were found to be in diabetic ketoacidosis (DKA). Initially, you were being treated in the ICU to help control your blood sugars and correct your DKA. You were then moved to a regular floor to monitor your sugars. Your DKA has resolved, and you have had normal blood sugars. This likely occurred because of your Farxiga, which is a side effect which can occur. Medications Please STOP all diabetes medications you are currently taking. Please START Lantus every morning. -Take 20 units if your morning blood glucose is <150. -Take 30 units if your morning blood glucose is >150 Please START Lispro sliding scale insulin -0 units if blood glucose < 150 -2 units if blood glucose 151-200 -4 units if blood glucose 201-250 -6 units if blood glucose 251-300 -8 units if blood glucose 301-350 -10 units if blood glucose 351-400 -12 units if blood glucose 401-450 Follow Ups 1. Primary care physician, Dr. Reyes, in 1 week for overall health care management. 2. [employer], Dr. Kennedy, in 1 week for management of your diabetes. If you have any new, changing, or worsening symptoms please call 911 or return to the ED. Referrals: Pete Reyes MD [Non Staff, Medical] - Joby Kennedy MD [Staff Physician] - Disposition: HOME - Home Medications Comprehensive Discharge Medication List: Ambulatory Orders Norethindrone 5 mg PO BID 01/16/20 Insulin Glargine,Hum.rec.anlog [Lantus] 20 unit SQ AM #1 vial 01/18/20 Insulin Sliding Scale [Novolog Vial Sliding Scale -] 1 vial SQ ACHS PRN #2 units 01/18/20 ATTENDING PHYSICIAN STATEMENT I saw and evaluated the patient. I reviewed the resident's note and discussed the case with the resident. I agree with the resident's findings and plan as documented. SUBJECTIVE: OBJECTIVE: ASSESSMENT AND PLAN:
--- NOTE | 2020-01-18 15:07 | CONSULT ---
Consult Consult Specialty:: Endocrine Referred by:: Angel Luis Paredes Res Physician Reason for Consultation:: DMT1 - History of Present Illness Chief Complaint: high sugars History of Present Illness: 34 yo F, pmh of IDDM and adenomyosis admitted with weakness nausea dyspnea malaise elevated bs and dka,recent changes with menses and stared hormone therapy,has difficulty controlling blood sugars,despite taking combination therapy has felt uneasy with poor appetite and high sugars.started on iv fluid and insulin therapy has improved significantly. - Past Medical History ...LMP: 12/29/19 ...LMP Comment: Having her menses since 12/29/19 due to adenomyosis ...: No - Smoking History Smoking history: Never smoked Have you smoked in the past 12 months: No Home Medications - Allergies Allergies/Adverse Reactions: Allergies Allergy/AdvReac Type Severity Reaction Status Date / Time ibuprofen Allergy Verified 01/16/20 11:10 - Home Medications Home Medications: Ambulatory Orders Norethindrone 5 mg PO BID 01/16/20 Insulin Glargine,Hum.rec.anlog [Lantus] 20 unit SQ AM #1 vial 01/18/20 Insulin Sliding Scale [Novolog Vial Sliding Scale -] 1 vial SQ ACHS PRN #2 units 01/18/20 Review of Systems - Review of Systems Constitutional: reports: Lethargy, Malaise Eyes: reports: No Symptoms HENT: reports: No Symptoms Neck: reports: No Symptoms Cardiovascular: reports: Shortness of Breath Respiratory: reports: Exercise Intolerance, SOB Gastrointestinal: reports: No Symptoms Genitourinary: reports: No Symptoms, Frequency Breasts: reports: No Symptoms Reported Musculoskeletal: reports: Muscle Cramps, Muscle Weakness Integumentary: reports: No Symptoms Neurological: reports: Numbness Endocrine: reports: Increased Thirst Physical Exam Vital Signs: Vital Signs Temperature 98.8 F 01/18/20 14:00 Pulse Rate 97 H 01/18/20 14:00 Respiratory Rate 20 01/18/20 14:00 Blood Pressure 122/74 01/18/20 14:00 O2 Sat by Pulse Oximetry (%) 100 01/18/20 14:00 Constitutional: Yes: No Distress, Calm Labs: CBC, BMP 01/18/20 07:18 01/18/20 07:18 Problem List - Problems (1) Brittle diabetes mellitus Problems reviewed: Yes Code(s): E10.9 - TYPE 1 DIABETES MELLITUS WITHOUT COMPLICATIONS (2) Abnormal EKG Code(s): R94.31 - ABNORMAL ELECTROCARDIOGRAM [ECG] [EKG] (3) Chest pain Code(s): R07.9 - CHEST PAIN, UNSPECIFIED (4) Insulin dependent diabetes mellitus Code(s): BFE1533 - (5) SOB (shortness of breath) Code(s): R06.02 - SHORTNESS OF BREATH Assessment/Plan Current Active Problems Abnormal EKG (Acute) Chest pain (Acute) Has immunity to COVID-19 virus (Acute) Insulin dependent diabetes mellitus (Acute) Palpitations (Acute) SOB (shortness of breath) (Acute) Current Active Problems Abnormal Lab Results 01/17/20 01/18/20 01/18/20 21:28 07:18 07:18 WBC 2.9 L Hgb 10.2 L Hct 29.4 L MCV 79.7 L BUN 5.2 L 6.4 L Creatinine 0.4 L Random Glucose 179 H 122 H Calcium 8.3 L Phosphorus 2.0 L AST 6 L ALT 10 L Alkaline Phosphatase 43 L Total Protein 6.0 L Albumin 2.9 L Laboratory Results - last 24 hr 01/17/20 01/17/20 01/17/20 16:02 21:25 21:28 WBC RBC Hgb Hct MCV MCH MCHC RDW Plt Count MPV Sodium 136 Potassium 3.9 Chloride 105 Carbon Dioxide 24 Anion Gap 8 BUN 5.2 L Creatinine 0.7 Est GFR (CKD-EPI)AfAm 130.10 Est GFR (CKD-EPI)NonAf 112.25 POC Glucometer 304 198 Random Glucose 179 H Calcium 8.6 Phosphorus Magnesium Total Bilirubin AST ALT Alkaline Phosphatase Total Protein Albumin 01/18/20 01/18/20 01/18/20 06:05 07:18 07:18 WBC 2.9 L RBC 3.69 Hgb 10.2 L Hct 29.4 L MCV 79.7 L MCH 27.5 MCHC 34.5 RDW 14.4 Plt Count 277 MPV 8.1 Sodium 139 Potassium 3.5 Chloride 107 Carbon Dioxide 22 Anion Gap 10 BUN 6.4 L Creatinine 0.4 L Est GFR (CKD-EPI)AfAm 156.40 Est GFR (CKD-EPI)NonAf 134.94 POC Glucometer 143 Random Glucose 122 H Calcium 8.3 L Phosphorus 2.0 L Magnesium 1.9 Total Bilirubin 0.5 AST 6 L ALT 10 L Alkaline Phosphatase 43 L Total Protein 6.0 L Albumin 2.9 L 01/18/20 11:26 WBC RBC Hgb Hct MCV MCH MCHC RDW Plt Count MPV Sodium Potassium Chloride Carbon Dioxide Anion Gap BUN Creatinine Est GFR (CKD-EPI)AfAm Est GFR (CKD-EPI)NonAf POC Glucometer 167 Random Glucose Calcium Phosphorus Magnesium Total Bilirubin AST ALT Alkaline Phosphatase Total Protein Albumin plan: bgm acmeal use novolog scale lantus 15units am daily sugar below 150mg/dl lanus 20units am daily if sugar above 150mg/dl follow up outpatient for cgms and endocrinology
--- NOTE | 2020-01-18 17:58 | PN ---
Teaching Attending Note Name of Resident: Ruma Greer ATTENDING PHYSICIAN STATEMENT I saw and evaluated the patient. I reviewed the resident's note and discussed the case with the resident. I agree with the resident's findings and plan as documented. SUBJECTIVE: pt seen and examined at bedside OBJECTIVE: Last Vital Signs Temp Pulse Resp BP Pulse Ox 98.8 F 97 H 20 122/74 100 01/18/20 14:00 01/18/20 14:00 01/18/20 14:00 01/18/20 14:00 01/18/20 14:00 GENERAL: Awake, alert, and fully oriented, in no acute distress. LUNGS: Breath sounds equal, clear to auscultation bilaterally. No wheezes, and no crackles. No accessory muscle use. HEART: Regular rate and rhythm, normal S1 and S2 ABDOMEN: Soft, nontender, not distended LOWER EXTREMITIES: 2+ pulses, warm, well-perfused. No calf tenderness. No peripheral edema. NEUROLOGICAL: Cranial nerves II-XII intact. Normal speech. Labs reviewed ASSESSMENT AND PLAN: 34 yo lady pmh of IDDM2 and adenomyosis c/b heavy periods on exogenous hormones who presents w/ palpitations and shortness of breath of a few hour duration that has worsened since onset and is accompanied by weakness. Found to have DKA and admitted to ICU # euglycemic DKA - resolved likely 2/2 to Daptoglifozin use, known cause of EuDKA troponin -ve x3, non specific ST changes. denies CP d/c daptogliflozin, insulin regimen adjusted HgA1c 8.8 Endocrine consult appreciated tolerated PO diet reported dyspnea improved discussed adjustment in DM treatment and stressed the importance of follow up with her live in housekeeper nanny uncontrolled DM JEWEL resolved Proteinuria Adenomyosis DVT prophylaxis
== END 2020-01-18 17:08 | disposition home or self-care (01) | DRG 639 ==
LOC: JER 11:03 → JERBED 15:13 → JICU 20:22 → J8W 01-17 15:32
PROVIDERS: ADMIT Internal Medicine Pulmonary Disease; ATTEND Student in an Organized Health Care Education/Training Program
DX: E11.10 Type 2 diabetes mellitus with ketoacidosis without coma (principal); R07.9 Chest pain, unspecified; Z79.4 Long term (current) use of insulin; R00.2 Palpitations; R06.02 Shortness of breath; R00.0 Tachycardia, unspecified; N80.0 Endometriosis of uterus; R94.31 Abnormal electrocardiogram [ECG] [EKG]; R53.1 Weakness
CPT/HCPCS: 36415; 36600; 71275-TC; 80048; 80053; 80061; 80307; 81003; 82010; 82436; 82550; 82565; 82693; 82728; 82803; 82962; 83036; 83605; 83615; 83690; 83721; 83735; 83880; 84100; 84300; 84439; 84443; 84484; 84703; 85025; 85027; 85610; 85730; 86140; 86769; 87077; 87086; 93005; 93010; 99291; C9803; J0131; J1644; Q9967; U0003